=== PATIENT | male | born 1955 | race Caucasian/White ===

== ENCOUNTER 2017-10-01 07:50 | Outpatient (CLI) | payer BC ==
[~2017-10-01 07:50] MED LIST: ASPI-12 PO; ATOR80TA PO; CLON-527 PO; EPIN0.3P8 IM; HYDR12.5 PO; LEVO50TA8 PO; LOSA100T28 PO; LYR25C PO; METO50TA7 PO
[2017-10-01 08:48] LABS: BASOPHILS % (AUTO) 0.7 % (0-1); EOSINOPHILS # (AUTO) 0.3 X10'3 (0-0.9); EOSINOPHILS % (AUTO) 5.6 % (0-6); HEMOGLOBIN 16.8 g/dl (14.0-17.9); LYMPHOCYTES # (AUTO) 1.2 X10'3 (1.1-4.8); LYMPHOCYTES % (AUTO) 19.8 % (21-51); MEAN CORPUSCULAR HEMOGLOBIN 31.8 PG (27.0-31.0); MEAN PLATELET VOLUME 7.1 FL (7.4-10.4); MONOCYTES # (AUTO) 0.5 X10'3 (0-0.9); MONOCYTES % (AUTO) 8.7 % (2-12); NEUTROPHILS # (AUTO) 4.1 X10'3 (1.8-7.7); NEUTROPHILS % (AUTO) 65.2 % (42-75); PLATELET COUNT 157 X10'3 (140-440); RED BLOOD COUNT 5.27 X10'6 (4.70-6.10); RED CELL DISTRIBUTION WIDTH 14.2 % (11.5-14.5); WHITE BLOOD COUNT 6.2 X10'3 (4.5-11.0)
[2017-10-01 08:50] LABS: CLARITY,URINE CLEAR (Clear); COLOR,URINE YELLOW (Yellow); GLUCOSE, URINE NEGATIVE (Neg); KETONES,URINE TRACE mg/dl (Neg); LEUKOCYTE ESTERASE ,URINE NEGATIVE (Neg); NITRITES, URINE NEGATIVE (Neg); OCCULT BLOOD,URINE NEGATIVE (Neg); PROTEIN,URINE NEGATIVE (Neg); UROBILINOGEN,URINE 0.2 E.U/dL (0.2-1.0)
[2017-10-01 08:51] LABS: UA COLLECTION TYPE CLN CATCH MIDSTREAM
[2017-10-01 08:56] LABS: INR 0.9 INR; PROTHROMBIN TIME 9.7 SECONDS (9.0-12.0)
[2017-10-01 09:31] LABS: ALANINE AMINOTRANSFERASE 45 U/L (12-78); ALBUMIN/GLOBULIN RATIO 1.2 (1.1-1.5); ALKALINE PHOSPHATASE 85 IU/L (46-116); ANION GAP 11 (8-16); ASPARTATE AMINO TRANSFERASE 21 U/L (10-37); BILIRUBIN,TOTAL 0.7 MG/DL (0.1-1.0); BLOOD UREA NITROGEN 23 MG/DL (7-18); CHLORIDE 107 MMOL/L (99-107); CREATININE 0.96 MG/DL (0.60-1.10); GLUCOSE 99 MG/DL (70-104); SODIUM 145 MMOL/L (135-145); TOTAL CARBON DIOXIDE 27.2 MMOL/L (24-32); TOTAL PROTEIN 7.3 G/DL (6.4-8.2); eGFR 80 ML/MIN
[2017-10-01 09:40] LABS: HEMOGLOBIN A1C 5.6 % (4.5-6.2); POTASSIUM 4.1 MMOL/L (3.5-5.1)
== END 2017-10-01 23:59 | disposition home or self-care (01) ==
LOC: LAB 07:50
PROVIDERS: ATTEND Specialist
DX: Z01.818 Encounter for other preprocedural examination (principal); Z51.81 Encounter for therapeutic drug level monitoring; N39.0 Urinary tract infection, site not specified; E11.8 Type 2 diabetes mellitus with unspecified complications; I10 Essential (primary) hypertension
CPT/HCPCS: 36415; 80053; 81003; 83036; 85025; 85610; 87070

== ENCOUNTER 2017-10-08 10:30 | Inpatient (IN) | payer BC ==
[~2017-10-08] VITALS: Ht 177.8 cm; Wt 124.7 kg
[~2017-10-08 10:30] MED LIST changes: +AMLO2.5T2 PO; -CLON-527 PO; -EPIN0.3P8 IM
[2017-10-09] MEDS ORDERED: CLON1TAB4 PO (12:23)
[2017-10-10] MEDS ORDERED: ringers solution, lacted 1,000 ML IV SCH (05:00)
[2017-10-10] MEDS ORDERED: gabapentin 300mg capsule PO ONE (05:30)
[2017-10-10] MEDS ORDERED: DOCUMENT DATE & TIME OF BETA-BLOCKER PO ONE (05:30)
[2017-10-10] MEDS ORDERED: oxyCODONE SR 10mg (sust. release) tab PO ONE (05:30)
[2017-10-10] MEDS ORDERED: vancomycin inj 1,500 MG in normal saline 300ml IV soln IV ONE (05:30)
[2017-10-10] MEDS ORDERED: famotidine 20mg tablet PO ONE (05:30)
[2017-10-10] MEDS ORDERED: acetaminophen 325mg tablet PO ONE (05:30)
[2017-10-10] MEDS ORDERED: ceFAZolin inj. 3,000 MG in normal saline 100ml IV soln 100 ML IV ONE (05:30)
[2017-10-10] MEDS ORDERED: tranexamic acid inj. 1,000 MG in normal saline 100ml IV soln 90 ML IV ONE (05:30)
[2017-10-12] VITALS (18 sets, daily range): BP systolic 96–168; BP diastolic 57–97
[2017-10-12] MEDS ORDERED: ringers solution, lacted 1,000 ML IV SCH ×2 (05:00→08:10)
[2017-10-12] MEDS ORDERED: ceFAZolin inj. 3,000 MG in normal saline 100ml IV soln 100 ML IV ONE (05:30)
[2017-10-12] MEDS ORDERED: DOCUMENT DATE & TIME OF BETA-BLOCKER PO ONE (05:30)
[2017-10-12] MEDS ORDERED: LIDOcaine 1% (10mg/ml) 2ml vial ONE (05:57)
[2017-10-12] MEDS ORDERED: ROPIVAcaine 0.5% (5mg/ml) 30ml vial ONE (06:35)
[2017-10-12] MEDS ORDERED: bacitracin inj 150,000 UNIT in sodium chloride irrig. sol 3,000 ML IR ONE (07:00)
[2017-10-12] MEDS ORDERED: cloNIDine hcl/PF 100mcg/ml inj ONE (07:14)
[2017-10-12] MEDS ORDERED: MIDAZolam 1mg/ml 10ml vial ONE (07:16)
[2017-10-12] MEDS ORDERED: morphine /PF 1mg/ml 10ml inj. ONE (07:17)
[2017-10-12] MEDS ORDERED: LIDOcaine 1% 30ml preserv. free vial ONE (07:22)
[2017-10-12] MEDS ORDERED: diphenhydrAMINE 50 mg/ml inj ONE (07:55)
[2017-10-12] MEDS ORDERED: propofol inj 20 ML IV ONE ×3 (07:55→09:27)
[2017-10-12] MEDS ORDERED: famotidine 20mg tablet PO ONE (08:00)
[2017-10-12] MEDS ORDERED: ceFAZolin 2gm in dextrose, iso 100 ML IV ONE (08:00)
[2017-10-12] MEDS ORDERED: acetaminophen 325mg tablet PO ONE (08:00)
[2017-10-12] MEDS ORDERED: oxyCODONE SR 10mg (sust. release) tab PO ONE (08:00)
[2017-10-12] MEDS ORDERED: gabapentin 300mg capsule PO ONE (08:00)
[2017-10-12] MEDS ORDERED: tranexamic acid inj. 1,000 MG in normal saline 100ml IV soln 90 ML IV ONE (08:00)
[2017-10-12] MEDS ORDERED: ondansetron/PF 4mg/2ml inj IV PRN ×3 (08:10→10:05)
[2017-10-12] MEDS ORDERED: naloxone 2mg/2ml inj 2 MG in normal saline 500ml IV soln 500 ML IV PRN (08:10)
[2017-10-12] MEDS ORDERED: meperidine/PF 50mg/ml syringe IV PRN ×3 (08:10)
[2017-10-12] MEDS ORDERED: proCHLORperazine 10 MG/2 ml inj IV PRN (08:10)
[2017-10-12] MEDS ORDERED: diphenhydrAMINE 50 mg/ml inj IV PRN (08:10)
[2017-10-12] MEDS ORDERED: morphine 4 MG/ML inj SYRINge IV PRN ×2 (08:10)
[2017-10-12] MEDS ORDERED: ceFAZolin 1000mg inj ONE (09:27)
[2017-10-12] MEDS ORDERED: HYDROmorphone inj. 0.5 MG/0.5 ML DISP.SYRIN IV PRN (10:05)
[2017-10-12] MEDS ORDERED: bisacodyl 10mg suppository rectal RC PRN (10:05)
[2017-10-12] MEDS: potassium cl 20mEq in 1/2 NS 1,000 ML IV SCH ×2 (10:05→21:04)
[2017-10-12] MEDS ORDERED: acetaminophen 325mg tablet PO PRN (10:05)
[2017-10-12] MEDS ORDERED: diphenhydrAMINE 25mg capsule PO PRN ×2 (10:05)
[2017-10-12] MEDS ORDERED: magnesium hydroxide 30ml (MOM) UD suspension PO PRN (10:05)
[2017-10-12] MEDS ORDERED: dexamethasone sod phosphate 4mg/ml inj. ONE (10:21)
[2017-10-12] MEDS ORDERED: BUPIVAcaine/PF 2.5 mg/ml (0.25%) 30ml vial ONE (10:21)
[2017-10-12] MEDS ORDERED: labetalol 5mg/ml 20ml inj. IV ONE (10:21)
[2017-10-12] MEDS: gabapentin 300mg capsule PO SCH ×2 (13:58→20:56)
[2017-10-12] MEDS: acetaminophen 325mg tablet PO SCH ×2 (13:58→20:55)
[2017-10-12] MEDS: ceFAZolin 1GM/D5W- ADD-VANTAGE 50 ML IV SCH (17:09)
[2017-10-12] MEDS ORDERED: vancomycin/NS 1 GM ADD-VANTAGE 250 ML IV SCH (20:00)
[2017-10-12] MEDS: sennosides 8.6mg tablet PO SCH (20:54)
[2017-10-12] MEDS: atorvastatin 20mg tablet PO SCH (20:55)
[2017-10-12] MEDS: ascorbic acid 500mg tablet PO SCH (20:55)
[2017-10-12] MEDS: oxyCODONE/APAP 10/325mg tablet PO PRN (22:36)
[2017-10-13] MEDS: ceFAZolin 1GM/D5W- ADD-VANTAGE 50 ML IV SCH (00:09)
[2017-10-13 02:00] VITALS: BP 130/62
[2017-10-13] MEDS: acetaminophen 325mg tablet PO SCH ×3 (02:11→13:59)
[2017-10-13] MEDS: oxyCODONE/APAP 10/325mg tablet PO PRN ×4 (05:42→19:28)
[2017-10-13] MEDS: potassium cl 20mEq in 1/2 NS 1,000 ML IV SCH ×3 (05:46→20:08)
[2017-10-13 05:48] LABS: BASOPHILS % (AUTO) 0 % (0-1); EOSINOPHILS % (AUTO) 0 % (0-6); HEMATOCRIT 40.3 % (42.0-52.0); HEMOGLOBIN 14.4 g/dl (14.0-17.9); LYMPHOCYTES # (AUTO) 0.9 X10'3 (1.1-4.8); MEAN CORPUSCULAR HEMOGLOBIN 32.5 PG (27.0-31.0); MEAN CORPUSCULAR HGB CONC 35.6 % (33.0-36.5); MEAN CORPUSCULAR VOLUME 91.3 FL (78-98); MEAN PLATELET VOLUME 6.9 FL (7.4-10.4); MONOCYTES # (AUTO) 1.4 X10'3 (0-0.9); MONOCYTES % (AUTO) 11.7 % (2-12); NEUTROPHILS # (AUTO) 9.9 X10'3 (1.8-7.7); NEUTROPHILS % (AUTO) 81.3 % (42-75); PLATELET COUNT 151 X10'3 (140-440); RED BLOOD COUNT 4.42 X10'6 (4.70-6.10); RED CELL DISTRIBUTION WIDTH 13.4 % (11.5-14.5); WHITE BLOOD COUNT 12.2 X10'3 (4.5-11.0)
[2017-10-13 06:00] VITALS: BP 144/78
[2017-10-13 06:03] LABS: PROTHROMBIN TIME 10.1 SECONDS (9.0-12.0)
[2017-10-13 06:10] LABS: ANION GAP 9 (8-16); CHLORIDE 103 MMOL/L (99-107); POTASSIUM 4.1 MMOL/L (3.5-5.1); SODIUM 138 MMOL/L (135-145); TOTAL CARBON DIOXIDE 25.8 MMOL/L (24-32)
[2017-10-13] MEDS: levoTHYROXINE 25mcg tablet PO SCH (07:47)
[2017-10-13] MEDS: HYDROchlorothiazide 25mg tablet PO SCH (07:50)
[2017-10-13] MEDS: losartan 50mg tablet PO SCH (07:50)
[2017-10-13] MEDS: gabapentin 300mg capsule PO SCH ×3 (07:51→20:06)
[2017-10-13] MEDS: amLODIPine 5mg tablet PO SCH (07:51)
[2017-10-13] MEDS: multivitamins, therapeutics tablet PO SCH (07:52)
[2017-10-13] MEDS: metoprolol succinate 25mg (24-HOUR) SR. Tablet PO SCH (07:54)
[2017-10-13] MEDS: ascorbic acid 500mg tablet PO SCH ×2 (07:56→20:06)
[2017-10-13 08:11] VITALS: BP 135/66
[2017-10-13] MEDS ORDERED: warfarin 10mg tablet PO ONE (10:00)
[2017-10-13 10:30] VITALS: BP 139/65
[2017-10-13] MEDS: Protein Smoothie (high protein) 240ml (8oz) cup PO SCH (12:30)
[2017-10-13 18:30] VITALS: BP 135/67
[2017-10-13] MEDS: celeCOXIB 100mg capsule PO SCH (20:06)
[2017-10-13] MEDS: sennosides 8.6mg tablet PO SCH (20:06)
[2017-10-13] MEDS: atorvastatin 20mg tablet PO SCH (20:07)
[2017-10-13 22:00] VITALS: BP 134/60
[2017-10-14] MEDS: oxyCODONE/APAP 10/325mg tablet PO PRN ×5 (00:47→21:18)
[2017-10-14 06:00] VITALS: BP 132/69
[2017-10-14 06:01] LABS: BASOPHILS % (AUTO) 0.3 % (0-1); EOSINOPHILS # (AUTO) 0.3 X10'3 (0-0.9); EOSINOPHILS % (AUTO) 3.1 % (0-6); HEMATOCRIT 39.3 % (42.0-52.0); HEMOGLOBIN 13.8 g/dl (14.0-17.9); LYMPHOCYTES # (AUTO) 1.6 X10'3 (1.1-4.8); MEAN CORPUSCULAR HEMOGLOBIN 31.7 PG (27.0-31.0); MEAN CORPUSCULAR VOLUME 90.8 FL (78-98); MEAN PLATELET VOLUME 6.9 FL (7.4-10.4); MONOCYTES # (AUTO) 1.3 X10'3 (0-0.9); MONOCYTES % (AUTO) 13.2 % (2-12); NEUTROPHILS # (AUTO) 6.9 X10'3 (1.8-7.7); NEUTROPHILS % (AUTO) 67.4 % (42-75); PLATELET COUNT 149 X10'3 (140-440); RED BLOOD COUNT 4.33 X10'6 (4.70-6.10); RED CELL DISTRIBUTION WIDTH 13.7 % (11.5-14.5); WHITE BLOOD COUNT 10.2 X10'3 (4.5-11.0)
[2017-10-14] MEDS: levoTHYROXINE 25mcg tablet PO SCH (06:27)
[2017-10-14] MEDS: multivitamins, therapeutics tablet PO SCH (07:23)
[2017-10-14] MEDS: metoprolol succinate 25mg (24-HOUR) SR. Tablet PO SCH (07:24)
[2017-10-14] MEDS: gabapentin 300mg capsule PO SCH ×3 (07:24→20:19)
[2017-10-14] MEDS: ascorbic acid 500mg tablet PO SCH ×2 (07:24→20:19)
[2017-10-14] MEDS: amLODIPine 5mg tablet PO SCH (07:25)
[2017-10-14] MEDS: celeCOXIB 100mg capsule PO SCH ×2 (07:25→20:19)
[2017-10-14] MEDS: HYDROchlorothiazide 25mg tablet PO SCH (07:25)
[2017-10-14] MEDS: losartan 50mg tablet PO SCH (07:26)
[2017-10-14 10:00] VITALS: BP 140/68
[2017-10-14] MEDS ORDERED: warfarin 10mg tablet PO ONE (10:00)
[2017-10-14] MEDS ORDERED: acetaminophen 325mg tablet PO PRN (10:05)
[2017-10-14] MEDS ORDERED: ASPI-1264 PO (10:45)
[2017-10-14] MEDS: Protein Smoothie (high protein) 240ml (8oz) cup PO SCH (17:30)
[2017-10-14 18:00] VITALS: BP 141/69
[2017-10-14] MEDS: atorvastatin 20mg tablet PO SCH (20:19)
[2017-10-14] MEDS: sennosides 8.6mg tablet PO SCH (20:20)
[2017-10-14 22:00] VITALS: BP 148/62
[2017-10-15 05:41] LABS: BASOPHILS % (AUTO) 0.4 % (0-1); EOSINOPHILS # (AUTO) 0.5 X10'3 (0-0.9); EOSINOPHILS % (AUTO) 5.4 % (0-6); HEMATOCRIT 38.6 % (42.0-52.0); HEMOGLOBIN 13.5 g/dl (14.0-17.9); LYMPHOCYTES # (AUTO) 1.6 X10'3 (1.1-4.8); LYMPHOCYTES % (AUTO) 17.3 % (21-51); MEAN CORPUSCULAR VOLUME 91.4 FL (78-98); MONOCYTES # (AUTO) 1.2 X10'3 (0-0.9); MONOCYTES % (AUTO) 13.3 % (2-12); NEUTROPHILS # (AUTO) 5.9 X10'3 (1.8-7.7); NEUTROPHILS % (AUTO) 63.6 % (42-75); PLATELET COUNT 161 X10'3 (140-440); RED BLOOD COUNT 4.22 X10'6 (4.70-6.10); RED CELL DISTRIBUTION WIDTH 13.7 % (11.5-14.5); WHITE BLOOD COUNT 9.3 X10'3 (4.5-11.0)
[2017-10-15] MEDS: oxyCODONE/APAP 10/325mg tablet PO PRN (05:54)
[2017-10-15 06:45] LABS: INR 1.5 INR; PROTHROMBIN TIME 15.8 SECONDS (9.0-12.0)
[2017-10-15 06:55] VITALS: BP 147/77
[2017-10-15] MEDS: levoTHYROXINE 25mcg tablet PO SCH (07:10)
[2017-10-15] MEDS ORDERED: WALKERFR (07:33)
[2017-10-15] MEDS: celeCOXIB 100mg capsule PO SCH (08:10)
[2017-10-15] MEDS: gabapentin 300mg capsule PO SCH (08:10)
[2017-10-15] MEDS: HYDROchlorothiazide 25mg tablet PO SCH (08:10)
[2017-10-15] MEDS: multivitamins, therapeutics tablet PO SCH (08:10)
[2017-10-15] MEDS: amLODIPine 5mg tablet PO SCH (08:10)
[2017-10-15] MEDS: ascorbic acid 500mg tablet PO SCH (08:10)
[2017-10-15] MEDS: metoprolol succinate 25mg (24-HOUR) SR. Tablet PO SCH (08:11)
[2017-10-15] MEDS: losartan 50mg tablet PO SCH (08:11)
[2017-10-15] MEDS ORDERED: warfarin 5mg tablet PO ONE (09:00)
== END 2017-10-15 11:30 | disposition home or self-care (01) | DRG 470 ==
LOC: EDSTATUS 10:30 → PAS IN 10-12 05:30 → EDSTATUS 10-12 07:30 → ORTHO 4S 10-12 11:35
PROVIDERS: ADMIT Specialist; ATTEND Specialist
PROC: 3E0T3BZ Introduction of Anesthetic Agent into Peripheral Nerves and Plexi, Percutaneous Approach (ICD-10-PCS; 2017-10-12)
PROC: 0SRD0J9 Replacement of Left Knee Joint with Synthetic Substitute, Cemented, Open Approach (ICD-10-PCS; principal; 2017-10-12 07:22)
DX: M17.12 Unilateral primary osteoarthritis, left knee (principal); D62 Acute posthemorrhagic anemia; E03.9 Hypothyroidism, unspecified; E78.5 Hyperlipidemia, unspecified; I25.10 Atherosclerotic heart disease of native coronary artery without angina pectoris; F41.9 Anxiety disorder, unspecified; G47.30 Sleep apnea, unspecified; E11.9 Type 2 diabetes mellitus without complications; I10 Essential (primary) hypertension; Z95.1 Presence of aortocoronary bypass graft; Z79.899 Other long term (current) drug therapy
CPT/HCPCS: 36415; 73560; 80051; 82948; 85025; 85610; 87070; 94760; 97110; 97116; 97162; 97530; A6449; A6455; A7000; C1713; C1758; C1776; J0690; J0735; J1100; J1170; J1200; J2250; J2274; J2704; J2795; J3370; J3490; J7030; J7120

== ENCOUNTER 2022-07-08 08:47 | Outpatient (CLI) | payer MEDICARE ==
[~2022-07-08 08:47] MED LIST changes: -ASPI-12 PO; +CLON1TAB96 PO; -LOSA100T28 PO; +LOSA100T57 PO; +WALKERFR
[2022-07-08] MEDS ORDERED: IODIXANOL 320 MG/ML INFUS..BTL 100ML IV ONE (08:53)
[2022-07-08 10:13] LABS: ALBUMIN 3.6 G/DL (3.4-5.0); ANION GAP 7 (8-16); BLOOD UREA NITROGEN 16 MG/DL (7-18); BUN/CREATININE RATIO 13.7 (5.4-32.0); CALCIUM 8.6 MG/DL (8.5-10.1); CHLORIDE 100 MMOL/L (99-107); CREATININE 1.17 MG/DL (0.60-1.10); GLUCOSE 129 MG/DL (70-104); POTASSIUM 3.9 MMOL/L (3.5-5.1); SODIUM 137 MMOL/L (135-145); TOTAL CARBON DIOXIDE 29.6 MMOL/L (24-32); eGFR 62 ML/MIN
== END 2022-07-08 23:59 | disposition home or self-care (01) ==
LOC: RAD 08:47
PROVIDERS: ATTEND Internal Medicine Cardiovascular Disease
DX: I27.20 Pulmonary hypertension, unspecified (principal); I48.0 Paroxysmal atrial fibrillation; R31.9 Hematuria, unspecified; I70.0 Atherosclerosis of aorta; K76.0 Fatty (change of) liver, not elsewhere classified; J98.4 Other disorders of lung; Z95.1 Presence of aortocoronary bypass graft
CPT/HCPCS: 36415; 75572; 80048; J3490; Q9967

== ENCOUNTER 2022-10-13 07:37 | Outpatient (CLI) | payer MEDICARE ==
[2022-10-13 08:41] LABS: ALBUMIN 3.7 G/DL (3.4-5.0); ANION GAP 11 (8-16); BLOOD UREA NITROGEN 15 MG/DL (7-18); BUN/CREATININE RATIO 13.3 (10.0-20.0); CHLORIDE 100 MMOL/L (99-107); CREATININE 1.13 MG/DL (0.60-1.10); GLUCOSE 133 MG/DL (70-104); POTASSIUM 3.8 MMOL/L (3.5-5.1); SODIUM 140 MMOL/L (135-145); TOTAL CARBON DIOXIDE 28.6 MMOL/L (24-32); eGFR 65 ML/MIN
[2022-10-13] MEDS ORDERED: IODIXANOL 320 MG/ML INFUS..BTL 100ML IV ONE (08:47)
== END 2022-10-13 23:59 | disposition home or self-care (01) ==
LOC: RAD 07:37
PROVIDERS: ATTEND Nurse Practitioner Adult Health
DX: I28.1 Aneurysm of pulmonary artery (principal); I27.21 Secondary pulmonary arterial hypertension; I70.90 Unspecified atherosclerosis; K76.0 Fatty (change of) liver, not elsewhere classified; J98.4 Other disorders of lung; Z95.818 Presence of other cardiac implants and grafts; Z95.1 Presence of aortocoronary bypass graft
CPT/HCPCS: 36415; 75572; 80048; J3490; Q9967